=== PATIENT | female | born 1950 | race Caucasian/White ===

== ENCOUNTER 2019-05-16 12:44 | Emergency (ER) | payer OTHER ==
--- NOTE | 2019-05-16 14:04 | RAD REPORT ---
EXAM DESCRIPTION: CT - Ct Stroke Brain Wo Cont - 05/16/2019 1:53 pm CLINICAL HISTORY: Transient alteration of awareness CLINICAL HISTORY: None. TECHNIQUE: Axial 5 millimeter thick images of the head were obtained without IV contrast. All CT scans are performed using dose optimization technique as appropriate and may include automated exposure control or mA/KV adjustment according to patient size. FINDINGS: No intracranial hemorrhage, mass, or cerebral edema. No acute infarction identifiable. No extra-axial fluid collections. Adame matter-white matter differentiation is preserved. Visualized portions of the mastoid air cells, paranasal sinuses, and orbits are unremarkable. Findings telephoned to the referring clinician 1400 hours IMPRESSION: No CT evidence of acute intracranial process.
[2019-05-16 14:13] LABS: Absolute Lymphocytes (CBC) 1.3 K/uL (0.7-4.9); Basophils % 0.4 % (0-1.3); Hematocrit 38.3 % (36.0-45.0); Lymphocytes % 16.9 % (15.3-44.8); MPV 8.6 fL (7.6-11.3); RBC Red Blood Cell Count 4.37 M/uL (3.86-4.86)
[2019-05-16 14:23] LABS: Protime INR 0.95
--- NOTE | 2019-05-16 14:29 | RAD REPORT ---
EXAM DESCRIPTION: RAD - Chest Single View - 05/16/2019 1:35 pm CLINICAL HISTORY: Stroke protocol chest film COMPARISON: None. TECHNIQUE: AP portable chest image was obtained 1332 hour . FINDINGS: No focal lung parenchymal process seen. Underlying fibrotic changes are present. No failur e or volume overload. Heart and vasculature are normal. No measurable pleural effusion and no pneumot horax. No acute bony abnormality seen. No acute aortic finding. Calcified breast implant overlies the lower left chest. IMPRESSION: No acute cardiopulmonary process.
[2019-05-16 15:16] LABS: Urine Blood NEGATIVE (NEG); Urine Glucose NEGATIVE (NEG); Urine Protein NEGATIVE (NEG); Urine pH 5.5 (5.0-7.0)
--- NOTE | 2019-05-16 18:10 | RAD REPORT ---
EXAM DESCRIPTION: MRI - Brain Wo Cont - 05/16/2019 5:50 pm CLINICAL HISTORY: Confusion are COMPARISON: May 16, [address] TECHNIQUE: Axial, sagittal, and coronal magnetic images of the brain were obtained. Contrast was not requested FINDINGS: No significant abnormal signal is present within the brain. Diffusion-weighted/ADC mapping does not reveal evidence of acute infarction. The ventricles are normal caliber. An extra-axial fluid collection is not present The sinuses and mastoids are clear. IMPRESSION: Unremarkable unenhanced brain MRI
--- NOTE | 2019-05-16 19:35 | EDPHYS ---
Physician Documentation [facility] Name: Cleo Rodriguez Age: 68 yrs Sex: Female : 1950 Arrival Date: 05/16/2019 Time: 12:44 Bed 5 Private MD: ED Physician Jean Spencer HPI: 05/16 19:30 This 68 yrs old Female presents to ER via Ambulatory with complaints of jae Altered Mental Status. 19:30 The patient presents with confusion, trouble concentrating. Onset: The symptoms/episode jae began/occurred today. Possible causes: unknown. Associated signs and symptoms: Pertinent positives: confusion. Current symptoms: In the emergency department the patient's symptoms have improved, moderately. Patient's baseline: Neuro: alert and fully oriented. The patient has not experienced similar symptoms in the past. Historical: - Allergies: 12:49 Bactrim; hb - Home Meds: 12:49 None [Active]; hb - PMHx: 12:49 None; hb - PSHx: 12:49 Facial; hb - Immunization history:: Adult Immunizations up to date. - Social history:: Smoking status: Patient/guardian denies using tobacco. - Ebola Screening: : No symptoms or risks identified at this time. - Family history:: not pertinent. ROS: 19:30 Constitutional: Negative for fever, chills, and weight loss, Eyes: Negative for injury, jae pain, redness, and discharge, ENT: Negative for injury, pain, and discharge, Neck: Negative for injury, pain, and swelling, Cardiovascular: Negative for chest pain, palpitations, and edema, Respiratory: Negative for shortness of breath, cough, wheezing, and pleuritic chest pain, Abdomen/GI: Negative for abdominal pain, nausea, vomiting, diarrhea, and constipation, Back: Negative for injury and pain, : Negative for injury, bleeding, discharge, and swelling, MS/Extremity: Negative for injury and deformity, Skin: Negative for injury, rash, and discoloration, Psych: Negative for depression, anxiety, suicide ideation, homicidal ideation, and hallucinations, Allergy/Immunology: Negative for hives, rash, and allergies, Endocrine: Negative for neck swelling, polydipsia, polyuria, polyphagia, and marked weight changes, Hematologic/Lymphatic: Negative for swollen nodes, abnormal bleeding, and unusual bruising. 19:30 Neuro: Positive for altered mental status, weakness. Exam: 19:30 Constitutional: This is a well developed, well nourished patient who is awake, alert, jae and in no acute distress. Head/Face: Normocephalic, atraumatic. Eyes: Pupils equal round and reactive to light, extra-ocular motions intact. Lids and lashes normal. Conjunctiva and sclera are non-icteric and not injected. Cornea within normal limits. Periorbital areas with no swelling, redness, or edema. ENT: Nares patent. No nasal discharge, no septal abnormalities noted. Tympanic membranes are normal and external auditory canals are clear. Oropharynx with no redness, swelling, or masses, exudates, or evidence of obstruction, uvula midline. Mucous membranes moist. Neck: Trachea midline, no thyromegaly or masses palpated, and no cervical lymphadenopathy. Supple, full range of motion without nuchal rigidity, or vertebral point tenderness. No Meningismus. Chest/axilla: Normal chest wall appearance and motion. Nontender with no deformity. No lesions are appreciated. Cardiovascular: Regular rate and rhythm with a normal S1 and S2. No gallops, murmurs, or rubs. Normal PMI, no JVD. No pulse deficits. Respiratory: Lungs have equal breath sounds bilaterally, clear to auscultation and percussion. No rales, rhonchi or wheezes noted. No increased work of breathing, no retractions or nasal flaring. Abdomen/GI: Soft, non-tender, with normal bowel sounds. No distension or tympany. No guarding or rebound. No evidence of tenderness throughout. Back: No spinal tenderness. No costovertebral tenderness. Full range of motion. Female : Normal external genitalia. Skin: Warm, dry with normal turgor. Normal color with no rashes, no lesions, and no evidence of cellulitis. MS/ Extremity: Pulses equal, no cyanosis. Neurovascular intact. Full, normal range of motion. Neuro: Awake and alert, GCS 15, oriented to person, place, time, and situation. Cranial nerves II-XII grossly intact. Motor strength 5/5 in all extremities. Sensory grossly intact. Cerebellar exam normal. Normal gait. Psych: Awake, alert, with orientation to person, place and time. Behavior, mood, and affect are within normal limits. Vital Signs: 12:48 BP 164 / 92; Pulse 63; Resp 16; Temp 98.4; Pulse Ox 100% on R/A; Weight 58.97 kg; hb Height 5 ft. 6 in. (167.64 cm); Pain 0/10; 14:17 BP 140 / 90; Pulse 66; Resp 16; Pulse Ox 100% ; bp 15:33 BP 129 / 83; Pulse 69; Resp 16; Pulse Ox 100% ; bp 17:21 BP 141 / 81; Pulse 69; Resp 16; Pulse Ox 100% ; bp 19:15 BP 110 / 70; Pulse 74; Resp 18; Pulse Ox 98% on R/A; Pain 0/10; aa1 20:15 BP 102 / 68; Pulse 76; Resp 18; Pulse Ox 97% on R/A; Pain 0/10; aa1 21:07 BP 133 / 69; Pulse 74; Resp 18; Temp 98.6; Pulse Ox 98% on R/A; Pain 0/10; aa1 12:48 Body Mass Index 20.98 (58.97 kg, 167.64 cm) hb NIH Stroke Scale Scores: 13:00 NIHSS Score: 0 bp MDM: 18:22 Patient medically screened. [facility] 19:32 Data reviewed: vital signs, nurses notes, lab test result(s), EKG, radiologic studies, [facility] CT scan, MRI, plain films. 05/16 13:22 Order name: Basic Metabolic Panel; Complete Time: 14:45 kdr 05/16 13:22 Order name: CBC with Diff; Complete Time: 14:45 kdr 05/16 13:22 Order name: Protime (+inr); Complete Time: 14:45 kdr 05/16 13:22 Order name: Ptt, Activated; Complete Time: 14:45 kdr 05/16 14:12 Order name: Glucose, Ancillary Testing; Complete Time: 14:45 EDMS 05/16 15:01 Order name: Urine Dipstick--Ancillary (enter results); Complete Time: 19:19 em1 05/16 13:22 Order name: CT Stroke Brain w/o Contrast; Complete Time: 14:45 kdr 05/16 13:22 Order name: Stroke CXR 1 View; Complete Time: 14:45 kdr 05/16 13:22 Order name: EKG; Complete Time: 13:23 kdr 05/16 16:05 Order name: Brain Wo Cont; Complete Time: 19:19 EDMS 05/16 13:22 Order name: Accucheck; Complete Time: 14:02 kdr 05/16 13:22 Order name: Cardiac monitoring; Complete Time: 14:02 kdr 05/16 13:22 Order name: EKG - Nurse/Tech; Complete Time: 13:38 kdr 05/16 13:22 Order name: IV Saline Lock; Complete Time: 14:02 kdr 05/16 13:22 Order name: Labs collected and sent; Complete Time: 14:02 kdr 05/16 13:22 Order name: NPO; Complete Time: 14:02 kdr 05/16 13:22 Order name: O2 Per Protocol; Complete Time: 14:02 kdr 05/16 13:22 Order name: O2 Sat Monitoring; Complete Time: 14:02 kdr 05/16 13:22 Order name: Stroke Swallow Screen; Complete Time: 14:06 kdr Administered Medications: 20:01 Drug: Aspirin Chewable Tablet 324 mg Route: PO; aa1 20:01 Drug: foLIC Acid 1 mg Route: IVPB; Site: right forearm; aa1 20:02 Drug: NS 0.9% 1000 ml Route: IV; Rate: 1 bolus; Site: right forearm; aa1 Disposition: 05/16/19 19:34 Discharged to Home. Impression: Altered mental status, unspecified - resolved, Essential (primary) hypertension. - Condition is Stable. - Discharge Instructions: Confusion, Hypertension, Hypertension, [id number], How to Take Your Blood Pressure, [id number], Aspirin and Your Heart, Managing Your Hypertension. - Work release form, Medication Reconciliation Form, Thank You Letter, Antibiotic Education, Prescription Opioid Use form. - Follow up: Private Physician; When: 2 - 3 days; Reason: Recheck today's complaints, Continuance of care, Re-evaluation by your physician. Follow up: Crow Lamb MD; When: 2 - 3 days; Reason: Recheck today's complaints, Continuance of care, Re-evaluation by your physician. - Problem is new. - Symptoms have improved. NIH Stroke Scale - NIH Stroke Score Date: 05/16/2019 Time: 13:00 Total Score = 0 1a. Level of Consciousness (LOC) - 0(Alert) 1b. Level of Consciousness (LOC) (Year \T\ Age) - 0(Both) 1c. LOC Commands (Open \T\ Closes Eyes/Elementary Instructional Coach) - 0(Both) 2. Best Gaze (Lateral Gaze Paresis) - 0(Normal) 3. Visual Field Loss - 0(No visual loss) 4. Facial Palsy - 0(Normal) 5a. Left Arm: Motor (10-second hold) - 0(No drift) 5b. Right Arm: Motor (10-second hold) - 0(No drift) 6a. Left Leg: Motor (5-second hold - always test supine) - 0(No drift) 6b. Right Leg: Motor (5-second hold - always test supine) - 0(No drift) 7. Limb Ataxia (finger/nose \T\ heel/crisostomo - test with eyes open) - 0(Absent) 8. Sensory Loss (pinprick arms/legs/face) - 0(Normal) 9. Best Language: Aphasia (description/naming/reading) - 0(No aphasia) 10. Dysarthria (speech clarity - read or repeat words) - 0(Normal) 11. Extinction and Inattention (visual/tactile/auditory/spatial/personal) - 0(No abnormality) Initials: bp Signatures: Dispatcher [employer] EDMT Sophie Humphrey RN RN aa1 Jean Spencer MD MD cha Rittger, Kevin, MD MD [facility] Cleopatra Chun RN RN Corrections: (The following items were deleted from the chart) 16:04 14:45 MR STROKE PROTOCOL+MRI.RAD.BRZ ordered. [facility] 21:09 19:34 05/16/2019 19:34 Discharged to Home. Impression: Altered mental status, aa1 unspecified - resolved; Essential (primary) hypertension. Condition is Stable. Forms are Medication Reconciliation Form, Thank You Letter, Antibiotic Education, Prescription Opioid Use. Follow up: Private Physician; When: 2 - 3 days; Reason: Recheck today's complaints, Continuance of care, Re-evaluation by your physician. Follow up: Crow Lamb; When: 2 - 3 days; Reason: Recheck today's complaints, Continuance of care, Re-evaluation by your physician. Problem is new. Symptoms have improved. jae
--- NOTE | 2019-05-16 19:35 | ER ---
Nurse's Notes [facility] Name: Cleo Rodriguez Age: 68 yrs Sex: Female : 1950 Arrival Date: 05/16/2019 Time: 12:44 Bed 5 Private MD: Diagnosis: Altered mental status, unspecified-resolved;Essential (primary) hypertension Presentation: 05/16 12:47 Presenting complaint: Family reports confusion, pt keeps repeating the same question. hb Pt reports cough and congestion x 1 week. VAN NEGATIVE. Transition of care: patient was not received from another setting of care. Onset of symptoms was May 16, 2019. Risk Assessment: Do you want to hurt yourself or someone else? Patient reports no desire to harm self or others. Care prior to arrival: None. 12:47 Method Of Arrival: Ambulatory 12:47 Acuity: JAILYN 2 hb Triage Assessment: 13:00 General: Appears in no apparent distress. comfortable, Behavior is cooperative, bp appropriate for age, anxious. Pain: Denies pain. EENT: No deficits noted. Neuro: Level of Consciousness is awake, alert, obeys commands, Oriented to person, place, time, REPETITIVE QUESTIONING. Cardiovascular: No deficits noted. Respiratory: No deficits noted. GI: No signs and/or symptoms were reported involving the gastrointestinal system. : No signs and/or symptoms were reported regarding the genitourinary system. Derm: No deficits noted. Musculoskeletal: No deficits noted. Historical: - Allergies: 12:49 Bactrim; hb - Home Meds: 12:49 None [Active]; hb - PMHx: 12:49 None; hb - PSHx: 12:49 Facial; hb - Immunization history:: Adult Immunizations up to date. - Social history:: Smoking status: Patient/guardian denies using tobacco. - Ebola Screening: : No symptoms or risks identified at this time. - Family history:: not pertinent. Screenin:03 Abuse screen: Denies threats or abuse. Denies injuries from another. Nutritional bp screening: No deficits noted. Tuberculosis screening: No symptoms or risk factors identified. Fall Risk None identified. 14:06 The patient has not been NPO before screening. The patient is alert, able to follow bp commands. The patient does not exhibit slurred or garbled speech The patient is not exhibiting difficulty speaking. The patient does not exhibit difficulty understanding words. The patient is able to swallow own secretions with no drooling or need for suction. Patient tolerated one teaspoon of water. No drooling, immediate coughing, gurgling, or clearing of the throat was noted. The patient tolerated 90mL of water. No drooling, immediate coughing, gurgling, or clearing of the throat was noted. The patient passed the bedside swallow screening. Oral medications may be given as ordered. Contact Physician for further diet orders. Assessment: 13:00 General: SEE TRIAGE NOTE. bp 14:00 Reassessment: PT RETURNED FROM CT. ALL CURRENT ORDERS COMPLETED. bp 14:19 Reassessment: PER MD, CT UNREMARKABLE. NO REPETITIVE QUESTIONING AT THIS TIME. bp 15:33 Reassessment: MRI PENDING, VS STABLE. NO FOCAL NEURO DEFICITS NOTED AT THIS TIME. bp 17:21 Reassessment: ALL CURRENT ORDERS COMPLETED. VS STABLE, NO FOCAL NEURO DEFICITS NOTED AT bp THIS TIME. 17:44 Reassessment: PT TO MRI. bp 19:05 Reassessment: Patient appears in no apparent distress at this time. Patient and/or aa1 family updated on plan of care and expected duration. Pain level reassessed. Patient is alert, oriented x 3, equal unlabored respirations, skin warm/dry/pink. Awaiting provider reassessment Patient denies pain at this time. Patient states feeling better. 20:02 Reassessment: Patient appears in no apparent distress at this time. Patient and/or aa1 family updated on plan of care and expected duration. Pain level reassessed. Patient is alert, oriented x 3, equal unlabored respirations, skin warm/dry/pink. Pt to be dc'd once NS bolus complete. 21:07 Reassessment: Patient appears in no apparent distress at this time. Patient is alert, aa1 oriented x 3, equal unlabored respirations, skin warm/dry/pink. NS bolus complete. Discussed d/c \T\ f/u instructions with pt \T\ family; denies questions or concerns at this time. Ambulatory to lobby with steady gait. Patient denies pain at this time. Vital Signs: 12:48 BP 164 / 92; Pulse 63; Resp 16; Temp 98.4; Pulse Ox 100% on R/A; Weight 58.97 kg; hb Height 5 ft. 6 in. (167.64 cm); Pain 0/10; 14:17 BP 140 / 90; Pulse 66; Resp 16; Pulse Ox 100% ; bp 15:33 BP 129 / 83; Pulse 69; Resp 16; Pulse Ox 100% ; bp 17:21 BP 141 / 81; Pulse 69; Resp 16; Pulse Ox 100% ; bp 19:15 BP 110 / 70; Pulse 74; Resp 18; Pulse Ox 98% on R/A; Pain 0/10; aa1 20:15 BP 102 / 68; Pulse 76; Resp 18; Pulse Ox 97% on R/A; Pain 0/10; aa1 21:07 BP 133 / 69; Pulse 74; Resp 18; Temp 98.6; Pulse Ox 98% on R/A; Pain 0/10; aa1 12:48 Body Mass Index 20.98 (58.97 kg, 167.64 cm) hb NIH Stroke Scale Scores: 13:00 NIHSS Score: 0 bp ED Course: 12:44 Patient arrived in ED. as 12:48 Triage completed. hb 12:48 Arm band placed on. hb 12:54 Eliu Tilley, RN is Primary Nurse. bp 13:01 Osmar Jacobson MD is Attending Physician. kdr 13:03 Patient has correct armband on for positive identification. Bed in low position. Call bp light in reach. Side rails up X2. Adult w/ patient. 13:34 Stroke CXR 1 View In Process Unspecified. EDMS 13:53 CT Stroke Brain w/o Contrast In Process Unspecified. EDMS 14:00 Inserted saline lock: 20 gauge in right forearm, using aseptic technique. Blood bp collected. 17:56 Brain Wo Cont In Process Unspecified. EDMS 18:22 Attending Physician role handed off by Osmar Jacobson MD jae 18:22 Jean Spencer MD is Attending Physician. jae 19:33 Crow Lamb MD is Referral Physician. jae 21:07 No provider procedures requiring assistance completed. IV discontinued, intact, aa1 bleeding controlled, No redness/swelling at site. Pressure dressing applied. Administered Medications: 20:01 Drug: Aspirin Chewable Tablet 324 mg Route: PO; aa1 20:01 Drug: foLIC Acid 1 mg Route: IVPB; Site: right forearm; aa1 20:02 Drug: NS 0.9% 1000 ml Route: IV; Rate: 1 bolus; Site: right forearm; aa1 Outcome: 19:34 Discharge ordered by . jae 21:07 Discharged to home ambulatory, with family. aa1 21:07 Condition: good 21:07 Discharge instructions given to patient, family, Instructed on discharge instructions, follow up and referral plans. Demonstrated understanding of instructions, follow-up care. 21:09 Patient left the ED. aa1 NIH Stroke Scale - NIH Stroke Score Date: 05/16/2019 Time: 13:00 Total Score = 0 1a. Level of Consciousness (LOC) - 0(Alert) 1b. Level of Consciousness (LOC) (Year \T\ Age) - 0(Both) 1c. LOC Commands (Open \T\ Closes Eyes/Middle School Band Teacher) - 0(Both) 2. Best Gaze (Lateral Gaze Paresis) - 0(Normal) 3. Visual Field Loss - 0(No visual loss) 4. Facial Palsy - 0(Normal) 5a. Left Arm: Motor (10-second hold) - 0(No drift) 5b. Right Arm: Motor (10-second hold) - 0(No drift) 6a. Left Leg: Motor (5-second hold - always test supine) - 0(No drift) 6b. Right Leg: Motor (5-second hold - always test supine) - 0(No drift) 7. Limb Ataxia (finger/nose \T\ heel/crisostomo - test with eyes open) - 0(Absent) 8. Sensory Loss (pinprick arms/legs/face) - 0(Normal) 9. Best Language: Aphasia (description/naming/reading) - 0(No aphasia) 10. Dysarthria (speech clarity - read or repeat words) - 0(Normal) 11. Extinction and Inattention (visual/tactile/auditory/spatial/personal) - 0(No abnormality) Initials: bp Signatures: Dispatcher [employer] EDMS Sophie Humphrey RN RN aa1 Jean Spencer MD MD cha Rittger, Kevin, MD MD kdr Martinez, Amelia as Baxter, Heather, RN RN hb Peltier, Brian, RN RN bp Corrections: (The following items were deleted from the chart) 12:49 12:47 Presenting complaint: Family reports confusion, pt keeps repeating the hb same question. Pt reports cough and congestion x 1 week. hb 12:51 12:47 Acuity: JAILYN 3 hb hb
[2019-05-16] MEDS ORDERED: ASPIRIN 81 MG CHEWABLE TABLET ONE (19:56)
[2019-05-16] MEDS ORDERED: FOLIC ACID 5 MG/ML VIAL ONE (19:57)
[2019-05-16] MEDS ORDERED: NA CHLORIDE 0.9% 1,000 ML ONE (19:57)
[2019-05-16 21:31] VITALS: BP 133/69; TEMP 98.6; O2SAT 98
--- NOTE | 2019-05-17 06:45 | EKG ---
Test Date: 2019-05-16 Test Time: 13:32:09 Corporate Pilot: JEYSON MEASUREMENT RESULTS: Intervals: Rate: 63 [place]: 170 QRSD: 78 QT: 424 QTc: 433 [place]: P: 44 [place]: 170 QRS: 39 T: 48 INTERPRETIVE STATEMENTS: Normal sinus rhythm Cannot rule out Anterior infarct, age undetermined Abnormal ECG No previous ECG available for comparison Electronically Signed On 05-17-19 06:43:35 COLORIST FORMULATOR by Emanuel Collado
== END 2019-05-16 21:09 | disposition home or self-care (01) ==
LOC: ER 12:44
DX: I10 Essential (primary) hypertension (principal); Z88.1 Allergy status to other antibiotic agents
CPT/HCPCS: 93005; 85025; 80048; 36415; 85610; 82947; 85730; 81003; 70450; 71045; 70551; 96374; 99284; J7030